=== PATIENT | female | born 1965 | race Caucasian/White ===

== ENCOUNTER 2020-02-17 09:16 | Emergency (ER) | payer BC ==
[2020-02-17] MEDS ORDERED: Ondansetron 4 MG/2 ML SDV IVPUSH ONE (09:38)
[2020-02-17] MEDS ORDERED: Sodium Chloride 0.9% 2.5 ML Syringe FLUSH PRN ×2 (09:38)
[2020-02-17] MEDS ORDERED: Sodium Chloride 0.9% 10 ML Syringe FLUSH PRN (09:38)
[2020-02-17] MEDS ORDERED: Sodium Chloride 0.9% 1,000 ML IV ONE (09:38)
[2020-02-17] MEDS ORDERED: Ketorolac 30 MG/ML SDV IVPUSH ONE (09:38)
--- NOTE | 2020-02-17 10:11 | EDM.PDOC ---
ED HPI GENERAL MEDICAL PROBLEM - General Chief Complaint: Genitourinary Problem Time Seen by Provider: 02/17/20 09:26 - History of Present Illness INITIAL COMMENTS - FREE TEXT/NARRATIVE: History of present illness: Patient presents with right flank pain that began yesterday it is starting in her upper right flank rating into the right groin she says it is crampy in nature and she denies any dysuria and she is nauseous no vomiting she has not had any dysuria she denies any prior symptoms like this nothing seems to make it better or worse she denies any hematuria Review of systems: As per history of present illness and below otherwise all systems reviewed and negative. Past medical history: As per history of present illness and as reviewed below otherwise noncontributory. Surgical history: As per history of present illness and as reviewed below otherwise noncontributory. Social history: No reported history of drug or alcohol abuse. Family history: As per history of present illness and as reviewed below otherwise noncontributory. Physical exam: HEENT: Atraumatic, normocephalic, pupils reactive, negative for conjunctival pallor or scleral icterus, mucous membranes moist, throat clear, neck supple, nontender, trachea midline. Lungs: Clear to auscultation, breath sounds equal bilaterally, chest nontender. Heart: S1S2, regular, negative for clicks, rubs, or JVD. Abdomen: Soft, nondistended, nontender. Negative for masses or hep atosplenomegaly. Negative for costovertebral tenderness. Pelvis: Stable nontender. Genitourinary: Deferred. Rectal: Deferred. Extremities: Atraumatic, negative for cords or calf pain. Neurovascular un remarkable. Neuro: Awake, alert, oriented. Cranial nerves II through XII unremarkable. Cerebellum unremarkable. Motor and sensory unremarkable throughout. Exam nonfocal. Diagnostics: [] Therapeutics: [] Impression: [] Plan: Fluids analgesia lab studies CT of the abdomen pelvis without reassess the patient [] Definitive disposition and diagnosis as appropriate pending reevaluation and review of above. Right Flank Pain Score (Numeric/FACES): 8 - Related Data Allergies Allergy/AdvReac Type Severity Reaction Status Date / Time No Known Allergies Allergy Verified 02/17/20 09:28 Home Meds: Home Meds RX: Naproxen [Naprosyn] 500 mg PO Q12HR #20 tab 02/17/20 [Rx] cephALEXin [Keflex] 500 mg PO Q6H #40 cap 02/17/20 [Rx] Past Medical History HEENT History: Reports: None Cardiovascular History: Reports: None - Infectious Disease History Infectious Disease History: Reports: Chicken Pox - Past Surgical History HEENT Surgical History: Reports: None GI Surgical History: Reports: Bariatric Procedure, Cholecystectomy Other GI Surgeries/Procedures: Gastric Bypass Social & Family History - Family History Family Medical History: Noncontributory - Tobacco Use Smoking Status *Q: Never Smoker Second Hand Smoke Exposure: No - Caffeine Use Caffeine Use: Reports: Soda - Recreational Drug Use Recreational Drug Use: No ED ROS GENERAL - Review of Systems Review Of Systems: See Below ED EXAM, GENERAL - Physical Exam Exam: See Below Course - Vital Signs Text/Narrative:: CT reveals a large right sided cyst consistent with ovarian cyst. There is no evidence of renal calcification. Patient has urine suggestive of may be an early urinary tract infection although it is not overtly clear. With her symptoms I will treat her with some Rocephin and some Keflex cultures are pending. Patient will be discharged home on Keflex and naproxen follow-up with gynecology for the cyst. Last Recorded V/S: Last Vital Signs Temp 36.2 C 02/17/20 09:28 Pulse 84 02/17/20 09:28 Resp 16 02/17/20 09:28 BP 168/82 H 02/17/20 09:28 Pulse Ox 98 02/17/20 09:28 - Orders/Labs/Meds Orders: Active Orders 24 hr Category Date Time Status Sodium Chloride 0.9% [Saline Flush] Med 02/17/20 09:38 Active 10 ml FLUSH ASDIRECTED PRN Sodium Chloride 0.9% [Saline Flush] Med 02/17/20 09:38 Active 2.5 ml FLUSH ASDIRECTED PRN Sodium Chloride 0.9% [Saline Flush] Med 02/17/20 09:38 Active 2.5 ml FLUSH ASDIRECTED PRN Saline Lock Insert [OM.PC] Stat Oth 02/17/20 09:38 Ordered Medication Orders Sodium Chloride (Saline Flush) 10 ml FLUSH ASDIRECTED PRN PRN Reason: Keep Vein Open Last Admin: 02/17/20 10:09 Dose: 10 ml Documented by: [email or web address] Sodium Chloride (Saline Flush) 2.5 ml FLUSH ASDIRECTED PRN PRN Reason: Keep Vein Open Last Admin: 02/17/20 10:09 Dose: 2.5 ml Documented by: [id number] Sodium Chloride (Saline Flush) 2.5 ml FLUSH ASDIRECTED PRN PRN Reason: Keep Vein Open Last Admin: 02/17/20 10:09 Dose: 2.5 ml Documented by: [email or web address] Labs: Laboratory Tests 02/17/20 02/17/20 02/17/20 Range/Units 09:22 10:08 10:08 WBC 9.14 (4.0-11.0) K/uL RBC 4.29 L (4.30-5.90) M/uL Hgb 11.5 L (12.0-16.0) g/dL Hct 36.4 (36.0-46.0) % MCV 84.8 (80.0-98.0) fL MCH 26.8 L (27.0-32.0) pg MCHC 31.6 (31.0-37.0) g/dL RDW Std Deviation 46.4 (28.0-62.0) fl RDW Coeff of Candie 15 (11.0-15.0) % Plt Count 353 (150-400) K/uL MPV 11.00 (7.40-12.00) fL Neut % (Auto) 82.0 H (48.0-80.0) % Lymph % (Auto) 11.9 L (16.0-40.0) % [place] % (Auto) 4.9 (0.0-15.0) % Eos % (Auto) 0.9 (0.0-7.0) % Baso % (Auto) 0.3 (0.0-1.5) % Neut # (Auto) 7.5 H (1.4-5.7) K/uL Lymph # (Auto) 1.1 (0.6-2.4) K/uL [place] # (Auto) 0.5 (0.0-0.8) K/uL Eos # (Auto) 0.1 (0.0-0.7) K/uL Baso # (Auto) 0.0 (0.0-0.1) K/uL Nucleated RBC % 0.0 /100WBC Nucleated RBCs # 0 K/uL Sodium 136 (136-145) mmol/L Potassium 3.8 (3.5-5.1) mmol/L Chloride 103 (98-107) mmol/L Carbon Dioxide 22.5 (21.0-32.0) mmol/L BUN 11 (7.0-18.0) mg/dL Creatinine 0.9 (0.6-1.0) mg/dL Est Cr Clr Drug Dosing 53.30 mL/min Estimated GFR (MDRD) > 60.0 ml/min Glucose 146 H (74-106) mg/dL Calcium 8.7 (8.5-10.1) mg/dL Total Bilirubin 0.8 (0.2-1.0) mg/dL AST 26 (15-37) IU/L ALT 25 (14-63) IU/L Alkaline Phosphatase 108 (46-116) U/L Total Protein 8.4 H (6.4-8.2) g/dL Albumin 4.2 (3.4-5.0) g/dL Globulin 4.2 H (2.6-4.0) g/dL Albumin/Globulin Ratio 1.0 (0.9-1.6) Urine Color YELLOW Urine Appearance CLEAR Urine pH 5.5 (5.0-8.0) Ur Specific [place] >= 1.030 (1.001-1.035) Urine Protein NEGATIVE (NEGATIVE) mg/dL Urine Glucose (UA) NEGATIVE (NEGATIVE) mg/dL Urine Ketones 15 H (NEGATIVE) mg/dL Urine Occult Blood NEGATIVE (NEGATIVE) Urine Nitrite NEGATIVE (NEGATIVE) Urine Bilirubin NEGATIVE (NEGATIVE) Urine Urobilinogen 0.2 (<2.0) EU/dL Ur Leukocyte Esterase NEGATIVE (NEGATIVE) Urine RBC 0-2 (0-2/HPF) Urine WBC 4-8 (0-5/HPF) Ur Epithelial Cells FEW (NONE-FEW) Urine Bacteria 2+ H (NEGATIVE) Urine Mucus LIGHT (NONE-MOD) Meds: Medications Generic Name Dose Route Start Last Admin Trade Name Freq PRN Reason Stop Dose Admin Sodium Chloride 10 ml 02/17/20 09:38 02/17/20 10:09 Saline Flush FLUSH 10 ml ASDIRECTED PRN Administration Keep Vein Open Sodium Chloride 2.5 ml 02/17/20 09:38 02/17/20 10:09 Saline Flush FLUSH 2.5 ml ASDIRECTED PRN Administration Keep Vein Open Sodium Chloride 2.5 ml 02/17/20 09:38 02/17/20 10:09 Saline Flush FLUSH 2.5 ml ASDIRECTED PRN Administration Keep Vein Open Discontinued Medications Generic Name Dose Route Start Last Admin Trade Name Freq PRN Reason Stop Dose Admin Ceftriaxone Sodium 1 gm 02/17/20 10:46 02/17/20 11:09 Rocephin IVPUSH 02/17/20 10:47 Not Given ONETIME ONE Sodium Chloride 1,000 mls @ 999 mls/hr 02/17/20 09:38 02/17/20 10:08 Normal Saline IV 02/17/20 10:38 999 mls/hr BOLUS ONE Administration Ceftriaxone Sodium/Dextrose 1 50 mls @ 100 mls/hr 02/17/20 10:51 02/17/20 10:54 gm/ Premix IV 02/17/20 11:20 100 mls/hr ONETIME ONE Administration Ketorolac Tromethamine 30 mg 02/17/20 09:38 02/17/20 10:09 Toradol IVPUSH 02/17/20 09:39 30 mg ONETIME ONE Administration Morphine Sulfate 4 mg 02/17/20 10:42 02/17/20 10:48 Morphine IVPUSH 02/17/20 10:43 4 mg ONETIME ONE Administration Ondansetron HCl 4 mg 02/17/20 09:38 02/17/20 10:09 Zofran IVPUSH 02/17/20 09:39 4 mg ONETIME ONE Administration Departure - Departure Time of Disposition: 11:35 Disposition: Home, Self-Care 01 Condition: Good Clinical Impression: Cyst of ovary, Flank pain - Discharge Information *PRESCRIPTION DRUG MONITORING PROGRAM REVIEWED*: Not Applicable *COPY OF PRESCRIPTION DRUG MONITORING REPORT IN PATIENT KAYLAH: Not Applicable Prescriptions: cephALEXin [Keflex] 500 mg PO Q6H #40 cap RX: Naproxen [Naprosyn] 500 mg PO Q12HR #20 tab Instructions: Ovarian Cyst, [id number] Referrals: PCP,None [Primary Care Provider] - Forms: ED Department Discharge Additional Instructions: The following information is given to patients seen in the emergency department who are being discharged to home. This information is to outline your options for follow-up care. We provide all patients seen in our emergency department with a follow-up referral. The need for follow-up, as well as the timing and circumstances, are variable depending upon the specifics of your emergency department visit. If you don't have a primary care physician on staff, we will provide you with a referral. We always advise you to contact your personal physician following an emergency department visit to inform them of the circumstance of the visit and for follow-up with them and/or the need for any referrals to a consulting specialist. The emergency department will also refer you to a specialist when appropriate. This referral assures that you have the opportunity for follow-up care with a specialist. All of these measure are taken in an effort to provide you with optimal care, which includes your follow-up. Under all circumstances we always encourage you to contact your private physician who remains a resource for coordinating your care. When calling for follow-up care, please make the office aware that this follow-up is from your recent emergency room visit. If for any reason you are refused follow-up, please contact the [facility] Emergency Department at and asked to speak to the emergency department charge nurse. [facility] [address] [place] [id number] [facility] [address] [place] [id number] Sepsis Event Note (ED) - Evaluation Sepsis Screening Result: No Definite Risk - Focused Exam Vital Signs: Vital Signs Temp Pulse Resp BP Pulse Ox 02/17/20 09:28 36.2 C 84 16 168/82 H 98 - My Orders Last 24 Hours: My Active Orders 02/17/20 09:38 Sodium Chloride 0.9% [Saline Flush] 10 ml FLUSH ASDIRECTED PRN Sodium Chloride 0.9% [Saline Flush] 2.5 ml FLUSH ASDIRECTED PRN Sodium Chloride 0.9% [Saline Flush] 2.5 ml FLUSH ASDIRECTED PRN Saline Lock Insert [OM.PC] Stat - Assessment/Plan Last 24 Hours: My Active Orders 02/17/20 09:38 Sodium Chloride 0.9% [Saline Flush] 10 ml FLUSH ASDIRECTED PRN Sodium Chloride 0.9% [Saline Flush] 2.5 ml FLUSH ASDIRECTED PRN Sodium Chloride 0.9% [Saline Flush] 2.5 ml FLUSH ASDIRECTED PRN Saline Lock Insert [OM.PC] Stat
--- NOTE | 2020-02-17 10:17 | CT ---
CT abdomen and pelvis Technique: Multiple axial sections were obtained from above the dome of the diaphragm inferiorly through the pubic symphysis. Intravenous and oral contrast not utilized. Study performed as a ureteral stone protocol. Findings: Kidneys show no abnormal calcifications. No ureteral dilatation or ureteral stone is seen. Visualized lung bases shows nothing acute. Noncontrast appearance of the liver shows no focal abnormality. Spleen appears within normal limits. Surgical clips are seen from previous cholecystectomy. Previous stomach surgery is noted. Adrenal glands show no nodule. Pancreas shows no discrete abnormality. Aorta shows atherosclerotic change without aneurysm. No retroperitoneal adenopathy or mesenteric abnormalities are seen. Cyst is noted within the upper right pelvis measuring 13.8 cm x 10.5 cm. This is most likely adnexal or off the right ovary. No additional pelvic abnormality is seen. No free fluid or inflammatory change is appreciated. Bone window settings were reviewed which shows severe disc space narrowing at L5-S1. Scattered endplate osteophytes are seen throughout the spine. No acute bony abnormality is appreciated. Impression: 1. Large cyst within the upper right pelvis. This is most likely adnexal or off the right ovary. This cyst measures 13.8 x 10.5 cm. 2. No renal calculi, ureteral dilatation or ureteral stone is seen. 3. Other findings believed to be nonacute as described above. Diagnostic code #9 This report was dictated in MDT
[2020-02-17] MEDS ORDERED: Morphine 4 MG/ML Syringe IVPUSH ONE (10:42)
[2020-02-17] MEDS ORDERED: cefTRIAXone 1 GM Vial IVPUSH ONE (10:46)
[2020-02-17] MEDS ORDERED: cefTRIAXone 1 GM in Premix Bag 1 BAG IV ONE (10:51)
[2020-02-17 10:54] LABS: BLOOD UREA NITROGEN,BUN 11 mg/dL (7.0-18.0); CARBON DIOXIDE,CO2 22.5 mmol/L (21.0-32.0); CHLORIDE,CL 103 mmol/L (98-107); GLUCOSE RANDOM 146 mg/dL (74-106); POTASSIUM,K 3.8 mmol/L (3.5-5.1); SODIUM,NA 136 mmol/L (136-145)
== END 2020-02-17 11:47 | disposition home or self-care (01) ==
LOC: MW.ED 09:16
DX: N83.209 Unspecified ovarian cyst, unspecified side (principal); Z90.49 Acquired absence of other specified parts of digestive tract; Z98.84 Bariatric surgery status
CPT/HCPCS: 74176; 80053; 81001; 85025; 96365; 96375; 99284; J0696; J1885; J2270; J2405; J7030; 99283

== ENCOUNTER 2020-03-15 06:29 | Day surgery (SDC) | payer BC ==
[~2020-03-15 06:29] MED LIST: Lactated Ringers 1,000 ML IV SCH; Sodium Chloride 0.9% 10 ML SDV IV PRN; Sodium Chloride 0.9% 10 ML Syringe FLUSH PRN; Sodium Chloride 0.9% 2.5 ML Syringe FLUSH PRN
[2020-03-15] MEDS ORDERED: Midazolam 1 MG/ML 2 ML SDV ONE (07:12)
[2020-03-15] MEDS ORDERED: fentaNYL 250 MCG/5 ML SDV ONE (07:12)
[2020-03-15] MEDS ORDERED: Propofol 200 MG/20 ML SDV ONE (07:12)
--- NOTE | 2020-03-15 07:15 | PCM.PREANE ---
Preanesthetic Assessment - Anesthesia/Transfusion/Family Hx Anesthesia History: Prior Anesthesia Without Reaction Family History of Anesthesia Reaction: No Transfusion History: No Prior Transfusion(s) - Review of Systems General: No Symptoms Pulmonary: No Symptoms Cardiovascular: No Symptoms Gastrointestinal: No Symptoms Neurological: No Symptoms Other: Reports: None - Physical Assessment NPO Status Date: 03/14/20 Vital Signs: Last Vital Signs Temp 97.3 F 03/15/20 07:06 Pulse 63 03/15/20 07:06 Resp 16 03/15/20 07:06 BP 134/81 03/15/20 07:06 Pulse Ox 96 03/15/20 07:06 Height: 5 ft 1 in Weight: 106.594 kg ASA Class: 2 Mental Status: Alert & Oriented x3 Airway Class: Mallampati = 2 Dentition: Reports: Normal Dentition ROM/Head Extension: Full Lungs: Clear to Auscultation, Normal Respiratory Effort Cardiovascular: Regular Rate - Lab Values: Laboratory Last Values WBC 7.32 K/uL (4.0-11.0) 03/15/20 06:54 RBC 4.18 M/uL (4.30-5.90) L 03/15/20 06:54 Hgb 11.3 g/dL (12.0-16.0) L 03/15/20 06:54 Hct 36.1 % (36.0-46.0) 03/15/20 06:54 MCV 86.4 fL (80.0-98.0) 03/15/20 06:54 MCH 27.0 pg (27.0-32.0) 03/15/20 06:54 MCHC 31.3 g/dL (31.0-37.0) 03/15/20 06:54 RDW Std Deviation 50.9 fl (28.0-62.0) 03/15/20 06:54 RDW Coeff of Candie 16 % (11.0-15.0) H 03/15/20 06:54 Plt Count 323 K/uL (150-400) 03/15/20 06:54 MPV 10.80 fL (7.40-12.00) 03/15/20 06:54 Nucleated RBC % 0.0 /100WBC 03/15/20 06:54 Nucleated RBCs # 0 K/uL 03/15/20 06:54 - Allergies Allergies/Adverse Reactions: Allergies Allergy/AdvReac Type Severity Reaction Status Date / Time codeine Allergy Nausea Verified 03/15/20 07:01 promethazine [From Phenergan] Allergy Nausea Verified 03/15/20 07:01 - Blood Blood Available: No - Anesthesia Plan Pre-Op Medication Ordered: None - Acknowledgements Anesthesia Type Planned: General Anesthesia Pt an Appropriate Candidate for the Planned Anesthesia: Yes Alternatives and Risks of Anesthesia Discussed w Pt/Guardian: Yes Pt/Guardian Understands and Agrees with Anesthesia Plan: Yes Additional Comments: PMH: MO, s/p gastric bypass PLAN: GET PreAnesthesia Questionnaire HEENT History: Reports: Other (See Below) Other HEENT History: wears glasses Cardiovascular History: Reports: None [employer]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 [No Known Home Meds] 03/09/20 [History] - CURRENT (IN HOUSE) MEDS Current Meds: Current Medications Lactated Ringer's (Ringers, Lactated) 1,000 mls @ 125 mls/hr IV ASDIRECTED DAYA Last Admin: 03/15/20 06:59 Dose: 125 mls/hr Documented by: Sodium Chloride (Saline Flush) 10 ml FLUSH ASDIRECTED PRN PRN Reason: Keep Vein Open Sodium Chloride (Saline Flush) 2.5 ml FLUSH ASDIRECTED PRN PRN Reason: Keep Vein Open Sodium Chloride (Normal Saline) 10 ml IV ASDIRECTED PRN PRN Reason: IV Use
[2020-03-15] MEDS ORDERED: Ondansetron 4 MG/2 ML SDV ONE (07:19)
[2020-03-15] MEDS ORDERED: Succinylcholine/Sod PF 100 MG/5 ML SYRINGE IV ONE (07:19)
[2020-03-15] MEDS ORDERED: Dexamethasone 4 MG/ML 5 ML MDV ONE (07:19)
[2020-03-15] MEDS ORDERED: Rocuronium Bromide 50 MG/5 ML Syringe ONE (07:19)
[2020-03-15 07:26] LABS: CARBON DIOXIDE,CO2 25.1 mmol/L (21.0-32.0); POTASSIUM,K 3.9 mmol/L (3.5-5.1)
[2020-03-15] MEDS ORDERED: Bupivacaine 25%/EPINEPHrine/PF 0 ML ONE (07:35)
[2020-03-15] MEDS ORDERED: Bupivacaine 0.25% 10 ML SDV ONE (07:35)
[2020-03-15] MEDS ORDERED: Glycopyrrolate 0.2 MG/ML SDV ONE (07:41)
[2020-03-15] MEDS ORDERED: fentaNYL 100 MCG/2 ML SDV IVPUSH PRN (08:39)
[2020-03-15] MEDS ORDERED: Octyl 2-Cyanoacrylate 1 Tube ONE (09:27)
[2020-03-15] MEDS ORDERED: HYDROmorphone 2 MG/ML Syringe ONE (09:29)
[2020-03-15] MEDS ORDERED: Sodium Chloride 0.9% 20 ML ONE (09:30)
[2020-03-15] MEDS ORDERED: Acetaminophen/HYDROcodone 325-5 MG Tab PO PRN (09:44)
[2020-03-15] MEDS ORDERED: Ketorolac 30 MG/ML SDV IVPUSH ONE (09:44)
--- NOTE | 2020-03-15 09:57 | PCM.OPNOTE ---
- General Post-Op/Procedure Note Date of Surgery/Procedure: 03/15/20 Operative Procedure(s): Laparoscopic right salpingo-oophrectomy Findings: Large right ovarian cyst, brown colored serous fluid in the cyst. Normal appearing left ovary and uterus. Pelvis normal appearing without signs of lympha denopathy or malignancy Pre Op Diagnosis: Right ovarian cyst Post-Op Diagnosis: Right ovarian cyst Anesthesia Technique: General ET Tube Primary Surgeon: Joseph Pastor Contact Center Associate: Melvi Diaz Pathology: Ovarian cyst fluid, right ovary and fallopian tube EBL in mLs: 15 Complications: None Condition: Stable
--- NOTE | 2020-03-15 10:19 | PCM.POSTAN ---
POST ANESTHESIA ASSESSMENT - MENTAL STATUS Mental Status: Alert, Oriented - VITAL SIGNS Vital Signs: Last Vital Signs Temp 97.4 F 03/15/20 09:46 Pulse 60 03/15/20 10:14 Resp 12 03/15/20 10:14 BP 116/48 L 03/15/20 10:14 Pulse Ox 98 03/15/20 10:14 - RESPIRATORY Respiratory Status: Respiratory Rate WNL, Airway Patent, O2 Saturation Stable - CARDIOVASCULAR CV Status: Pulse Rate WNL, Blood Pressure Stable - GASTROINTESTINAL GI Status: No Symptoms - POST OP HYDRATION Hydration Status: Adequate & Stable
--- NOTE | 2020-03-15 10:51 | PCM48HPAN ---
Post Anesthesia Note - EVALUATION WITHIN 48HRS OF ANESTHETIC Vital Signs in Normal Range: Yes Patient Participated in Evaluation: Yes Respiratory Function Stable: Yes Airway Patent: Yes Cardiovascular Function Stable: Yes Hydration Status Stable: Yes Pain Control Satisfactory: Yes Nausea and Vomiting Control Satisfactory: Yes Mental Status Recovered: Yes Vital Signs: Last Vital Signs Temp 97.4 F 03/15/20 09:46 Pulse 72 03/15/20 10:19 Resp 14 03/15/20 10:19 BP 119/54 L 03/15/20 10:19 Pulse Ox 97 03/15/20 10:19
--- NOTE | 2020-03-15 11:27 | PCM48HPAN ---
Post Anesthesia Note - EVALUATION WITHIN 48HRS OF ANESTHETIC Vital Signs in Normal Range: Yes Patient Participated in Evaluation: Yes Respiratory Function Stable: Yes Airway Patent: Yes Cardiovascular Function Stable: Yes Hydration Status Stable: Yes Pain Control Satisfactory: Yes Nausea and Vomiting Control Satisfactory: Yes Mental Status Recovered: Yes Vital Signs: Last Vital Signs Temp 36.3 C 03/15/20 09:46 Pulse 72 03/15/20 10:19 Resp 14 03/15/20 10:19 BP 119/54 L 03/15/20 10:19 Pulse Ox 97 03/15/20 10:19 - COMMENTS/OBSERVATIONS Free Text/Narrative:: Denies any complaints and states she is ready to go home.
--- NOTE | 2020-03-15 15:47 | OR ---
SURGEON: Joseph Pastor MD DATE OF PROCEDURE: 03/15/2020 INDICATION FOR PROCEDURE: 54-year-old female initially presented to the emergency room with pelvic pain, found to have a 13 cm cyst in the pelvis on CT scan. Otherwise, the scan was unremarkable. She was evaluated with pelvic ultrasound, which showed a fluid- filled, simple-appearing cyst measuring 13.8 cm in the pelvis, not able to clearly visualize where it originates from. Normal-appearing uterus with thin stripe. The patient had a CA-125 that was normal. Her pain had also resolved. Discussed treatment of ovarian cyst with the patient including expectant management or surgical removal, and she desires definitive management with surgical removal. Reviewed the risks and benefits of salpingo-oophorectomy, benefits of keeping the ovary including decreased risk of heart disease, stroke and osteoporosis and the risk of retaining the ovary and developing ovarian cancer in the future. The patient desires to keep her left ovary if it is normal appearing. PREOPERATIVE DIAGNOSIS: Right ovarian cyst. POSTOPERATIVE DIAGNOSIS: Right ovarian cyst. PROCEDURES PERFORMED: Diagnostic laparoscopy, drainage of right ovarian cyst, right salpingo- oophorectomy. HEL[employer] FABRICATION: Melvi Caldwell MS4 ANESTHESIA: General anesthesia. ANESTHESIOLOGIST: Dr. Bebeto Mann. FINDINGS: Large cyst noted in the pelvis that was filled with dark brown-colored serous fluid. The cyst was noted to be originating from the right ovary. The uterus, left ovary and fallopian tubes were normal appearing. The pelvis was normal appearing. ESTIMATED BLOOD LOSS: 15 mL. DESCRIPTION OF PROCEDURE: Procedure was explained to the patient including the risks of bleeding; infection; DVTs; injury to surrounding organs like bladder, bowel, ureters were explained to the patient. Questions answered and consent signed. The patient was brought to the operating room and placed under general anesthesia without difficulty. She was placed in dorsal lithotomy position with legs supported using stirrups. She was prepped and draped in the usual sterile fashion. A straight catheter was used to drain the bladder. A weighted speculum was placed in the posterior vagina to visualize the cervix. The vagina and cervix were normal appearing. The anterior lip of the cervix was grasped with a single-tooth tenaculum. Hegar dilator was used to dilate the cervix and then the HUMI uterine manipulator was placed in the uterine cavity. Attention was then turned to the abdomen. A 5 mm incision was made at the umbilicus. Veress needle was used for entry, however, the opening pressure continued to be high. Direct entry was then performed with a 5 mm trocar under direct laparoscopic visualization. Intraperitoneal location was visually confirmed. CO2 gas was initiated with low opening pressure and pneumoperitoneum to 15 mm was achieved. No visceral or vascular injury was noted at the entry site. Survey of the abdomen noted a large cyst in the pelvis that was originating from the right ovary. The uterus and the left ovary and fallopian tubes were normal appearing. A 5 mm trocar was then placed in the right lower quadrant under laparoscopic visualization followed by another 5 mm trocar in the left lower quadrant. An atraumatic grasper was used to sweep the bowel away from the pelvis. The patient was also placed in Trendelenburg. A laparoscopic needle was used to carefully penetrate the wall of the large ovarian cyst. Brown-colored serous-appearing fluid was serially withdrawn from the ovarian cyst and sent to pathology. Approximately 500 mL of fluid was removed from the ovarian cyst until most of the fluid was removed. A grasper was then used to elevate the ovary and fallopian tube. The right ureter was visualized. The LigaSure device was used to cauterize the IP ligament, then the fallopian tube by cauterizing along the mesosalpingx. The fallopian tube was then transected at the cornua. LigaSure was used to cauterize small areas that were bleeding. The left lower quadrant port was then replaced by a 12 mm port. An Endo Catch bag was placed in that port and the ovary and fallopian tube were placed in the bag. The Endo Catch bag was brought to the port site and the trocar was removed. The Endo Catch bag was then grasped with hemostats and the content inside of the bag was slowly removed from the bag, careful not to spill the contents. The right ovary and tube were removed and sent to pathology. The laparoscope was again placed in the abdomen and the pelvis was evaluated again for hemostasis. The pneumoperitoneum was slowly released and the pedicles were examined again and confirmed to be hemostatic. The trocars were then all removed and the incisions closed with 3-0 Monocryl in subcuticular fashion. Dermabond was placed over the incision. The patient tolerated the procedure well and was given postop care instructions. JESSICA STEVEN /[id number] CHRISTY
== END 2020-03-15 12:07 | disposition home or self-care (01) ==
LOC: MW.SDS 06:29
PROVIDERS: ATTEND Obstetrics & Gynecology
DX: D27.0 Benign neoplasm of right ovary (principal); E66.9 Obesity, unspecified; Z68.41 Body mass index [BMI] 40.0-44.9, adult; Z88.5 Allergy status to narcotic agent; Z88.8 Allergy status to other drugs, medicaments and biological substances
CPT/HCPCS: 36415; 58661; 80053; 84703; 85027; 86850; 86900; 86901; A9270; J0330; J1100; J1170; J1885; J2001; J2250; J2405; J2704; J3010; J3490; J7120; 88104; 88305